=== PATIENT | female | born 1945 | race Caucasian/White ===

== ENCOUNTER 2016-12-03 07:29 | Outpatient (CLI) | payer MEDICARE, BC ==
[~2016-12-03] VITALS: Ht 157.5 cm; Wt 71.2 kg
[~2016-12-03 07:29] MED LIST: ASPI1TAB PO; CALC1TAB72 PO; CEVI1CAP PO; HYDR-643 PO; HYDR200T3 PO; METH1TAB40 PO; OMEP20CA3 PO; PRAV40TA2 PO; VENL75TA2 PO; VITA100067 PO; VITA500T PO
[2016-12-03] MEDS ORDERED: NS 1,000 ML IV ONE (08:00)
[2016-12-03] MEDS ORDERED: PROPOFOL 200 MG/20 ML VIAL As Ordered ONE ×3 (08:04→08:52)
[2016-12-03] MEDS ORDERED: LIDOCAINE 2% INJ 100 MG/5 ML SDV (FOR ANES.) As Ordered ONE (08:04)
--- NOTE | 2016-12-03 09:08 | ROOR ---
Patient Name: Johanny Covarrubias Procedure Date: 12/03/2016 8:36 AM Date of : 1945 Age: 71 Room: [facility] Gender: Female Note Status: Finalized Procedure: Colonoscopy Indications: Hematochezia, Change in bowel habits Providers: Eder SONG MD Referring MD: Shanell Mishra NP Requesting Provider: Medicines: Monitored Anesthesia Care Complications: No immediate complications. Procedure: Pre-Anesthesia Assessment: - The heart rate, respiratory rate, oxygen saturations, blood pressure, adequacy of pulmonary ventilation, and response to care were monitored throughout the procedure. The Colonoscope was introduced through the anus and advanced to 5 cm into the ileum. The colonoscopy was performed without difficulty. The patient tolerated the procedure well. The quality of the bowel preparation was good. Findings: The perianal and digital rectal examinations were normal. Three flat polyps were found in the ascending colon. The polyps were 3 to 6 mm in size. These polyps were removed with a cold snare. Resection and retrieval were complete. Multiple medium-mouthed diverticula were found in the sigmoid colon. There was evidence of diverticular spasm. Small Internal Hemorrhoids. The colon exam was otherwise without abnormality on direct and retroflexion views. The terminal ileum appeared normal. Biopsies for histology were taken with a cold forceps for evaluation of microscopic colitis. Impression: - Three 3 to 6 mm polyps in the ascending colon, removed with a cold snare. Resected and retrieved. - Moderate diverticulosis in the sigmoid colon. There was evidence of diverticular spasm. - Small Internal Hemorrhoids. - The colon examination was otherwise normal on direct and retroflexion views. - The examined portion of the ileum was normal. - Biopsies were taken with a cold forceps for evaluation of microscopic colitis. Recommendation: - Telephone endoscopist for pathology results in 2 weeks. - If the pathology report reveals adenomatous tissue, then repeat the colonoscopy for surveillance in 3 - 5 years. - Use fiber, for example Citrucel, Fibercon, Konsyl or Metamucil. Eder Song MD Eder SONG MD 12/03/2016 9:07:45 AM This report has been signed electronically. Number of Addenda: 0 Note Initiated On: 12/03/2016 8:36 AM Estimated Blood Loss: Estimated blood loss: none.
[2016-12-03 09:20] VITALS: BP 116/61
== END 2016-12-03 09:32 | disposition home or self-care (01) ==
LOC: M OPP 07:29
PROVIDERS: ATTEND Internal Medicine Gastroenterology
DX: K62.5 Hemorrhage of anus and rectum (principal); R19.4 Change in bowel habit; D12.2 Benign neoplasm of ascending colon; K57.30 Diverticulosis of large intestine without perforation or abscess without bleeding; K64.8 Other hemorrhoids; R14.0 Abdominal distension (gaseous); E78.5 Hyperlipidemia, unspecified; R12 Heartburn; R06.02 Shortness of breath; M19.90 Unspecified osteoarthritis, unspecified site; M54.9 Dorsalgia, unspecified; F41.9 Anxiety disorder, unspecified; L93.0 Discoid lupus erythematosus; Z86.73 Personal history of transient ischemic attack (TIA), and cerebral infarction without residual deficits; Z78.0 Asymptomatic menopausal state; Z88.0 Allergy status to penicillin; Z88.2 Allergy status to sulfonamides; Z79.82 Long term (current) use of aspirin; Z79.899 Other long term (current) drug therapy; Z80.9 Family history of malignant neoplasm, unspecified

== ENCOUNTER → 2016-12-06 | Outpatient (REF) | payer MEDICARE, BC ==
[2016-12-06 18:38] LABS: BLOOD UREA NITROGEN 14 MG/DL (7-18); CREATININE FOR GFR 0.75 MG/DL (0.55-1.02); GLOMERULAR FILTRATION RATE > 60.0 (>39)
== END ==
LOC: M LABDRAW1 16:11
PROVIDERS: ATTEND Physical Medicine & Rehabilitation
DX: Z01.812 Encounter for preprocedural laboratory examination (principal)

== ENCOUNTER 2018-02-01 06:43 | Day surgery (SDC) | payer MEDICARE, BC ==
[2018-02-01] MEDS ORDERED: PHENYLEPHRINE HCL 10 % OPHTH. SOL 5ML OS (07:00)
[2018-02-01] MEDS ORDERED: MIDAZOLAM INJ 2 MG/2 ML VIAL (J2250) As Ordered (07:13)
[2018-02-01] MEDS: CYCLOPENTOLATE 2% OPHTH SOLN 2ML BTL OS (07:32)
[2018-02-01] MEDS: LIDOCAINE 3.5 % 1ML OPHTH TOPICAL GEL OU (07:33)
[2018-02-01] MEDS: OFLOXACIN 0.3 % (OCUFLOX) OPTH SOL 5ML OS (07:33)
[2018-02-01] MEDS: TROPICAMIDE 1% OPHTH SOLN 2ML OS (07:33)
[2018-02-01] MEDS: PHENYLEPHRINE 2.5% OPHTH SOL 2ML OS (07:33)
[2018-02-01] MEDS: POVIDONE-IODINE 5% OPHTH PREP SOL 30ML As Ordered (08:56)
[2018-02-01] MEDS: TRIAMCINOLONE PRES FR 40 MG/ML 1ML(TRIESENCE)(OR EYE ONLY)(J3300 PER 1MG) As Ordered (08:56)
[2018-02-01] MEDS: BSS with VANC/TOB/EPI for EYE CASES IR (08:56)
[2018-02-01] MEDS: LIDOCAINE 1% SDV 5 ML VIAL As Ordered (08:56)
[2018-02-01] MEDS: MOXIFLOXACIN IN BSS 0.25MG/0.25ML INTRACAMERAL INJ (OR EYE ONLY)(J2280) As Ordered (08:56)
[2018-02-01] MEDS: HEALON DUET (HEALON 10MG/ML 0.55ML & HEALON ENDOCOAT 30MG/ML 0.85ML) As Ordered (08:56)
== END 2018-02-01 09:42 | disposition home or self-care (01) ==
LOC: M SDC 06:43
DX: H26.9 Unspecified cataract (principal); E78.5 Hyperlipidemia, unspecified; K21.9 Gastro-esophageal reflux disease without esophagitis; M32.10 Systemic lupus erythematosus, organ or system involvement unspecified; G45.9 Transient cerebral ischemic attack, unspecified; Z79.82 Long term (current) use of aspirin; Z79.899 Other long term (current) drug therapy; Z87.891 Personal history of nicotine dependence; F32.9 Major depressive disorder, single episode, unspecified; F41.9 Anxiety disorder, unspecified
CPT/HCPCS: 66984

== ENCOUNTER 2018-02-08 09:23 | Day surgery (SDC) | payer MEDICARE, BC ==
[2018-02-08] MEDS: BSS with VANC/TOB/EPI for EYE CASES IR (07:00)
[~2018-02-08 09:23] MED LIST changes: -ASPI1TAB PO; -CALC1TAB72 PO; -CEVI1CAP PO; -HYDR-643 PO; -HYDR200T3 PO; -METH1TAB40 PO; -OMEP20CA3 PO; +PHENYLEPHRINE HCL 10 % OPHTH. SOL 5ML OD; -PRAV40TA2 PO; -VENL75TA2 PO; -VITA100067 PO; -VITA500T PO
[2018-02-08] MEDS: OFLOXACIN 0.3 % (OCUFLOX) OPTH SOL 5ML OD (10:02)
[2018-02-08] MEDS: TROPICAMIDE 1% OPHTH SOLN 2ML OD (10:02)
[2018-02-08] MEDS: CYCLOPENTOLATE 2% OPHTH SOLN 2ML BTL OD (10:02)
[2018-02-08] MEDS: PHENYLEPHRINE 2.5% OPHTH SOL 2ML OD (10:02)
[2018-02-08] MEDS: LIDOCAINE 3.5 % 1ML OPHTH TOPICAL GEL OU (10:02)
[2018-02-08] MEDS ORDERED: MIDAZOLAM INJ 2 MG/2 ML VIAL (J2250) As Ordered (11:23)
[2018-02-08] MEDS ORDERED: fentaNYL 100 MCG/2 ML INJECTION (J3010) As Ordered (11:23)
[2018-02-08] MEDS: POVIDONE-IODINE 5% OPHTH PREP SOL 30ML As Ordered (11:44)
[2018-02-08] MEDS: TRIAMCINOLONE PRES FR 40 MG/ML 1ML(TRIESENCE)(OR EYE ONLY)(J3300 PER 1MG) As Ordered (11:45)
[2018-02-08] MEDS: LIDOCAINE 1% SDV 5 ML VIAL As Ordered (11:45)
[2018-02-08] MEDS: HEALON DUET (HEALON 10MG/ML 0.55ML & HEALON ENDOCOAT 30MG/ML 0.85ML) As Ordered (11:45)
[2018-02-08] MEDS: MOXIFLOXACIN IN BSS 0.25MG/0.25ML INTRACAMERAL INJ (OR EYE ONLY)(J2280) As Ordered (11:45)
== END 2018-02-08 12:30 | disposition home or self-care (01) ==
LOC: M SDC 09:23
DX: H26.9 Unspecified cataract (principal); K21.9 Gastro-esophageal reflux disease without esophagitis; F32.9 Major depressive disorder, single episode, unspecified; F41.9 Anxiety disorder, unspecified; M32.10 Systemic lupus erythematosus, organ or system involvement unspecified; Z79.899 Other long term (current) drug therapy; Z79.82 Long term (current) use of aspirin; Z88.0 Allergy status to penicillin; Z88.2 Allergy status to sulfonamides; E78.5 Hyperlipidemia, unspecified
CPT/HCPCS: 66984

== ENCOUNTER → 2020-02-21 | Outpatient (CLI) | payer MEDICARE, BC ==
[~2020-02-21] MED LIST changes: +ACET-897 PO; +ASPI81TA26 PO; +CALC1TAB72 PO; +CEVI1CAP PO; +FLON1SPR; +HYDR-643 PO; +HYDR200T3 PO; +MELO15TA28 PO; +METH1TAB40 PO; +OMEP1CAP73 PO; -PHENYLEPHRINE HCL 10 % OPHTH. SOL 5ML OD; +PRAV40TA2 PO; +VENL150C43 PO; +VENL75CA47 PO; +VENL75TA2 PO; +VITA-243 PO; +VITA100067 PO; +ZYRTTAB8 PO
== END ==
LOC: M LABSMTC 11:11
PROVIDERS: ATTEND Anesthesiology
DX: Z01.818 Encounter for other preprocedural examination (principal)
CPT/HCPCS: C9803; U0003

== ENCOUNTER 2020-02-26 10:08 | Day surgery (SDC) | payer MEDICARE, BC ==
[~2020-02-26] VITALS: Ht 157.5 cm; Wt 66.9 kg
[~2020-02-26 10:08] MED LIST changes: +LIDOCAINE 2% 100MG/5ML SDV (FOR ANES.) As Ordered ONE; +NS 1,000 ML IV ONE; +propofoL 200 MG/20 ML VIAL As Ordered ONE
--- NOTE | 2020-02-26 12:26 | ROOR ---
Patient Name: Johanny Covarrubias Procedure Date: 02/26/2020 12:00 PM Date of : 1945 Age: 74 Room: [facility] Gender: Female Note Status: Finalized Procedure: Colonoscopy Indications: Follow-up for history of adenomatous polyps in the colon, Incidental abdominal pain noted Providers: Eder SONG MD Referring MD: FALGUNI SOARES MD Requesting Provider: Medicines: Monitored Anesthesia Care Complications: No immediate complications. Procedure: Pre-Anesthesia Assessment: - The heart rate, respiratory rate, oxygen saturations, blood pressure, adequacy of pulmonary ventilation, and response to care were monitored throughout the procedure. The Colonoscope was introduced through the anus and advanced to 10 cm into the ileum. The colonoscopy was performed without difficulty. The patient tolerated the procedure well. The quality of the bowel preparation was good. Findings: The perianal and digital rectal examinations were normal. Multiple small and large-mouthed diverticula were found in the sigmoid colon. There was evidence of diverticular spasm. The colon (entire examined portion) was redundant. Internal hemorrhoids were found during retroflexion. The hemorrhoids were moderate. The exam was otherwise without abnormality on direct and retroflexion views. The terminal ileum appeared normal. Impression: - Moderate diverticulosis in the sigmoid colon. There was evidence of diverticular spasm. - Internal hemorrhoids. - The examination was otherwise normal on direct and retroflexion views. - The examined portion of the ileum was normal. - No specimens collected. Recommendation: - Cause for new abdominal pain not seen today. You may have diverticular spasm. Would recommend use of Fiber supplement and Miralax daily. - Use fiber, for example Citrucel, Fibercon, Konsyl or Metamucil. - Miralax 1 capful (17 grams) in 8 ounces of water PO daily. - Repeat colonoscopy in 5 years for surveillance. - Return to my office at appointment to be scheduled. - To discuss todays findings, my office will call you in the next few days to schedule a follow up appointment. Eder Song MD Eder SONG MD 02/26/2020 12:25:49 PM Electronically signed by Eder SONG MD Number of Addenda: 0 Note Initiated On: 02/26/2020 12:00 PM Estimated Blood Loss: Estimated blood loss: none.
[2020-02-26 12:50] VITALS: BP 146/67
== END 2020-02-26 13:02 | disposition home or self-care (01) ==
LOC: M OPP 10:08
PROVIDERS: ATTEND Internal Medicine Gastroenterology
DX: Z12.11 Encounter for screening for malignant neoplasm of colon (principal); Z86.010 Personal history of colon polyps; Q43.8 Other specified congenital malformations of intestine; K64.8 Other hemorrhoids; K21.9 Gastro-esophageal reflux disease without esophagitis; M32.9 Systemic lupus erythematosus, unspecified; Z79.82 Long term (current) use of aspirin; Z79.899 Other long term (current) drug therapy; Z88.0 Allergy status to penicillin; Z88.1 Allergy status to other antibiotic agents

== ENCOUNTER → 2022-04-29 | Outpatient (CLI) | payer MEDICARE, BC ==
[~2022-04-29] MED LIST changes: +ALEN70TA82 PO; +DOCU100C16 PO; +FIBE625T PO; +GNPTAB37 PO; +LATA0.0015 OU; -LIDOCAINE 2% 100MG/5ML SDV (FOR ANES.) As Ordered ONE; +MECL-136 PO; +METH-1164 PO; -METH1TAB40 PO; -NS 1,000 ML IV ONE; +VENTAER INH; +VITA100024 PO; +VITA200016 PO; -propofoL 200 MG/20 ML VIAL As Ordered ONE
== END ==
LOC: M LABSMTC 09:18
PROVIDERS: ATTEND Anesthesiology
DX: Z01.812 Encounter for preprocedural laboratory examination (principal); Z20.822 Contact with and (suspected) exposure to COVID-19

== ENCOUNTER 2022-05-04 09:02 | Day surgery (SDC) | payer MEDICARE, BC ==
[~2022-05-04] VITALS: Ht 160 cm; Wt 62.1 kg
[~2022-05-04 09:02] MED LIST changes: +NS 1,000 ML IV ONE
[2022-05-04] MEDS ORDERED: LIDOCAINE 2% 100MG/5ML SDV (FOR ANES.) As Ordered ONE (09:57)
[2022-05-04] MEDS ORDERED: GLYCOPYRROLATE INJ 0.2 MG/ML 2 ML VIAL As Ordered ONE (09:57)
[2022-05-04] MEDS ORDERED: propofoL 200 MG/20 ML VIAL As Ordered ONE (09:57)
[2022-05-04 11:20] VITALS: BP 124/69
== END 2022-05-04 11:40 | disposition home or self-care (01) ==
LOC: M OPP 09:02
PROVIDERS: ATTEND Internal Medicine Gastroenterology
DX: Q43.8 Other specified congenital malformations of intestine (principal); D12.4 Benign neoplasm of descending colon; E78.5 Hyperlipidemia, unspecified; K21.9 Gastro-esophageal reflux disease without esophagitis; M19.90 Unspecified osteoarthritis, unspecified site; M32.9 Systemic lupus erythematosus, unspecified; L40.9 Psoriasis, unspecified; F41.9 Anxiety disorder, unspecified; F32.A Depression, unspecified; Z86.73 Personal history of transient ischemic attack (TIA), and cerebral infarction without residual deficits; Z96.641 Presence of right artificial hip joint; Z88.1 Allergy status to other antibiotic agents; Z88.2 Allergy status to sulfonamides; Z79.899 Other long term (current) drug therapy; Z82.49 Family history of ischemic heart disease and other diseases of the circulatory system; Z80.3 Family history of malignant neoplasm of breast